=== PATIENT | female | born 1950 | race Caucasian/White ===

== ENCOUNTER → 2016-11-13 | Day surgery (SDC) | payer OTHER ==
[~2016-11-13] VITALS: Ht 182.9 cm; Wt 115.2 kg
[~2016-11-13] MED LIST: /AMIT25TA PO; /QUIN20TA PO; ACCU1TAB2 PO; AMIT25TA PO; AMIT25TA10 PO; ASPI325T PO; ASPI81TA85 PO; BACT400T PO; BACT800T5 PO; BUPIVACAINE HCL 0.5% 30 ML VIAL XX ONE; BYDU1INJ SC; BYET10IN SC; CHEL50TA PO; CRAN1000 PO; CRAN200C PO; FISH1000 PO; FLON0.05; FLUC10TA PO; HUMA100I SC; HYDR-3713 PO; HYDR12.55 PO; INSUHUMDS SC; KRIL1CAP6 PO; LANTINJ4 SC; LEVO125T3 PO; LEVO500T PO; LIDOCAINE 1% SDV INJ 30 ML VIAL XX ONE; LR 1,000 ML IV SCH; MAG-400T7 PO; MAGN400C2 PO; MAGO400T PO; METF1000 PO; MIDAZOLAM INJ 2 MG/2 ML VIAL (J2250) As Ordered ONE; MULT1TAB9 PO; MULTTAB4 PO; ONDANSETRON 4MG/2ML VIAL (J2405) As Ordered ONE; PROBCAP4 PO; PROPOFOL 200 MG/20 ML VIAL As Ordered ONE; SILV-4 TOP; SIMV40TA2 PO; SYNT112T2 PO; TRES1INJ SC; VICO5TAB16 PO; ZANT150T PO; ZINC220T PO; ZINC30TA3 PO; fentaNYL 100 MCG/2 ML INJECTION (J3010) As Ordered ONE
--- NOTE | 2016-11-13 14:29 | RO ---
DATE OF PROCEDURE: 11/13/2016 PREPROCEDURE DIAGNOSIS: Right fourth toe ulcer with osteomyelitis. POSTPROCEDURE DIAGNOSIS: Right fourth toe ulcer with osteomyelitis. PROCEDURE: Right fourth toe amputation. SURGEON: Dr. Adam Echols MOPPER: None. ANESTHESIA: Monitored anesthesia care. Preoperative injection of 11 mL of 1:1 mixture of 1% lidocaine plain and 1/2% Marcaine plain. ESTIMATED BLOOD LOSS: Minimal. MATERIALS: #3-0 and #4-0 nylon. INJECTABLES: None. COMPLICATIONS: None. CONDITION: Stable. DESCRIPTION OF PROCEDURE: Saniya Thomas is a 65-year-old female who presents to [facility] with ulceration to her right toe. She has had multiple ulcerations in the past with previous amputations. She had developed a recent ulceration to her right fourth toe that had worsened over the last few weeks with now having exposed bone. She has been being treated with oral Bactrim without resolution. Decision was made to bring her to the operating room for fourth toe amputation. The patient site and side were identified and marked in preoperative holding area. Consent was reviewed and obtained. All risks, complications and alternatives to the procedure were explained to the patient in detail. All questions were answered. The patient was brought to the operating room and placed on the operating room table in supine position. Monitored anesthesia care was delivered by the anesthesia team. The patient received Ancef preopreatively. Preoperative injection of 11 mL of 1:1 mixture of 1% lidocaine plain and 0.25% Marcaine plain were injected to the right foot. Tourniquet was applied on the right calf. There were noted to be superficial ulcerations around the ankle and proximal calf. The tourniquet was placed in between these on an area of normal skin. The right foot was prepped and draped in normal sterile fashion and the tourniquet was inflated to 250 mmHg. A racquet type incision was drawn around the fourth toe and carried through with #15 blade full thickness to bone. It was noted that the ulceration was present over the middle phalanx with exposed bone. The toe was disarticulated at the proximal interphalangeal joint and this portion was sent to pathology. The exposed proximal phalanx head was resected with bone cutter and smoothed with rongeur and rasp. This too was sent for pathology. The site was irrigated with normal saline, inspected and noted to be free of any further necrotic tissue. The incision was closed using #3-0 and #4-0 nylon. Sterile dressings were applied. The tourniquet was deflated. The patient was brought to the postanesthesia care unit (PACU) with vital signs stable and neurovascular status intact. She will be partial weight bearing to the right foot. She will follow up in the office in three days. ANNE
[2016-11-13 14:30] VITALS: BP 152/84
== END | disposition home or self-care (01) ==
LOC: M SDC 10:53
PROVIDERS: ATTEND Podiatrist Foot & Ankle Surgery
DX: M86.8X7 Other osteomyelitis, ankle and foot (principal); E11.621 Type 2 diabetes mellitus with foot ulcer; L97.514 Non-pressure chronic ulcer of other part of right foot with necrosis of bone; E11.40 Type 2 diabetes mellitus with diabetic neuropathy, unspecified; G62.9 Polyneuropathy, unspecified; M14.671 Charcot's joint, right ankle and foot; B35.1 Tinea unguium; E03.9 Hypothyroidism, unspecified; I10 Essential (primary) hypertension; K76.0 Fatty (change of) liver, not elsewhere classified; G89.29 Other chronic pain; M54.9 Dorsalgia, unspecified; E78.00 Pure hypercholesterolemia, unspecified; R01.1 Cardiac murmur, unspecified; K21.9 Gastro-esophageal reflux disease without esophagitis; M12.9 Arthropathy, unspecified; Z88.5 Allergy status to narcotic agent; Z91.048 Other nonmedicinal substance allergy status; Z79.899 Other long term (current) drug therapy; Z79.82 Long term (current) use of aspirin; Z79.4 Long term (current) use of insulin; Z87.81 Personal history of (healed) traumatic fracture; Z86.14 Personal history of Methicillin resistant Staphylococcus aureus infection; Z90.710 Acquired absence of both cervix and uterus
CPT/HCPCS: 28820; 88304; 88311; J0690; J3010

== ENCOUNTER → 2020-05-04 | Outpatient (REF) | payer MEDICARE ==
[~2020-05-04] MED LIST changes: -/AMIT25TA PO; -/QUIN20TA PO; +AMIT1TAB11 PO; +ASPI81TA86 PO; -BUPIVACAINE HCL 0.5% 30 ML VIAL XX ONE; -LEVO125T3 PO; +LEVO125T4 PO; -LIDOCAINE 1% SDV INJ 30 ML VIAL XX ONE; -LR 1,000 ML IV SCH; +METF10004 PO; -MIDAZOLAM INJ 2 MG/2 ML VIAL (J2250) As Ordered ONE; -ONDANSETRON 4MG/2ML VIAL (J2405) As Ordered ONE; -PROPOFOL 200 MG/20 ML VIAL As Ordered ONE; +SIMV40TA20 PO; -fentaNYL 100 MCG/2 ML INJECTION (J3010) As Ordered ONE
[2020-05-04 17:33] LABS: CREATININE, URINE 38.7 MG/DL; MALB URINE SIEMENS < 5.0 MG/L; MAU/CREAT RATIO 12.9 MCG/MG (0.0-30.0)
== END ==
LOC: M LAB REF 15:03
PROVIDERS: ATTEND Nurse Practitioner Family
DX: E11.9 Type 2 diabetes mellitus without complications (principal)

== ENCOUNTER → 2021-09-09 | Outpatient (REF) | payer MEDICARE ==
[~2021-09-09] MED LIST changes: -AMIT25TA PO; +AMIT25TA17 PO
[2021-09-09 17:49] LABS: MALB URINE SIEMENS 5.8 MG/L; MAU/CREAT RATIO 5.7 MCG/MG (0.0-30.0)
== END ==
LOC: M LAB REF 16:41
PROVIDERS: ATTEND Nurse Practitioner Family
DX: E11.9 Type 2 diabetes mellitus without complications (principal)

== ENCOUNTER → 2022-10-09 | Outpatient (REF) | payer MEDICARE, BC ==
[2022-10-09 18:09] LABS: MALB URINE SIEMENS < 3.0 MG/DL; MAU/CREAT RATIO 5.2 MCG/MG (0.0-30.0)
== END ==
LOC: M LAB REF 17:05
PROVIDERS: ATTEND Nurse Practitioner Family
DX: E11.9 Type 2 diabetes mellitus without complications (principal)